=== PATIENT | male | born 1970 | race Two or more races ===

== ENCOUNTER 2021-09-18 07:37 | Emergency (ER) | payer OTHER ==
[~2021-09-18] VITALS: Ht 180.3 cm; Wt 90.7 kg
[2021-09-18 08:47] VITALS: BP 166/115
[2021-09-18] MEDS ORDERED: ACET-1158 PO (08:48)
[2021-09-18] MEDS ORDERED: CIPR1SUS8 OT ×2 (08:48→09:09)
== END 2021-09-18 09:07 | disposition home or self-care (01) ==
LOC: ER 07:37
DX: H60.93 Unspecified otitis externa, bilateral (principal); J01.90 Acute sinusitis, unspecified; B96.89 Other specified bacterial agents as the cause of diseases classified elsewhere; I10 Essential (primary) hypertension; Z79.899 Other long term (current) drug therapy

== ENCOUNTER 2023-04-18 07:14 | Emergency (ER) | payer OTHER, MEDICAID ==
[~2023-04-18] VITALS: Ht 180.3 cm; Wt 92.0 kg
[~2023-04-18 07:14] MED LIST: ACET500T58 PO; CIPR1SUS8 OT
[2023-04-18 07:44] VITALS: TEMP 97.9
[2023-04-18] MEDS ORDERED: PANTOPRAZOLE 40mg/50ML NS AE 50 ML IV ONE (08:00)
[2023-04-18] MEDS ORDERED: ONDANSETRON HCL 4 MG/2 ML VIAL IV ONE ×2 (08:00)
[2023-04-18] MEDS ORDERED: THIAMINE 100mg/ml INJ (200mg/2ml VIAL) IV ONE (08:00)
[2023-04-18] MEDS ORDERED: SODIUM CHLORIDE 0.9% 1,000 ML IV ONE ×3 (08:00)
[2023-04-18 08:18] LABS: Basophils # (auto) 0.1 10 ^3/uL (0-0.2); Basophils % (auto) 1.1 % (0.0-2.0); Eosinophils # (auto) 0.1 10 ^3/uL (0-0.8); Eosinophils % (auto) 1.1 % (0.0-7.0); Hematocrit 50.1 % (41.0-53.0); Hemoglobin 16.8 g/dL (13.5-17.5); Lymphocytes % (auto) 17.9 % (10.0-50.0); Mean Corpuscular Hgb Conc. 33.6 g/dL (32.0-36.0); Mean Corpuscular Volume 95.3 fL (80.0-100.0); Monocytes # (auto) 0.6 10 ^3/uL (0-1.3); Monocytes % (auto) 11.1 % (0.0-12.0); Neutrophils % (auto) 68.8 % (37.0-80.0); Nucleated Red Blood Cells % 0.1 %; Red Blood Cells 5.26 10^6/uL (4.5-5.90); Red Cell Distribution Width 13.1 % (11.8-14.3); White Blood Cell 5.8 10^3/uL (4.4-10.8)
[2023-04-18 08:36] LABS: Alanine Aminotransferase 185 U/L (7-40); Albumin 5.1 g/dL (3.2-4.8); Alkaline Phosphatase 67 U/L (46-116); Anion Gap 13 (5-15); Aspartate Aminotransferase 221 U/L (13-40); BUN/Creatinine Ratio 10.5 (10.0-20.0); Bilirubin, Total 2.2 mg/dL (0.2-1.0); Blood Urea Nitrogen 10 mg/dL (9-23); Calcium 9.9 mg/dL (8.5-10.1); Carbon Dioxide 22 mmol/L (20-30); Chloride 104 mmol/L (98-107); Glucose 126 mg/dL (74-106); Potassium 3.8 mmol/L (3.5-5.1); Sodium 139 mmol/L (136-145); Total Protein 7.4 g/dL (5.7-8.2)
[2023-04-18 08:44] VITALS: PULSE 99; RESP 18; O2SAT 97
[2023-04-18 09:32] LABS: Lipase 46 U/L (12-53)
[2023-04-18] MEDS ORDERED: AMOX500T3 PO (11:11)
[2023-04-18 11:46] LABS: Urine Bacteria FEW /hpf (None Seen); Urine Blood Negative /uL (Negative); Urine Clarity Clear (Clear); Urine Color Yellow (Yellow); Urine Hyaline Cast FEW /lpf (0 - 2); Urine Mucus FEW (None Seen); Urine Protein, UAD 1+ (Negative); Urine Specific Gravity 1.027 (1.001-1.035); Urine WBC 7 /hpf (0 - 3); Urine pH 6.5 (5.0-8.0)
[2023-04-18 14:57] VITALS: BP 159/90; PULSE 89; RESP 15; O2SAT 97
== END 2023-04-18 15:01 | disposition home or self-care (01) ==
LOC: ER 07:14
DX: F10.139 Alcohol abuse with withdrawal, unspecified (principal); I10 Essential (primary) hypertension; Y90.0 Blood alcohol level of less than 20 mg/100 ml
CPT/HCPCS: 36415; 74176; 80053; 81001; 83690; 85025; 96361; 96365; 96366; 96375; 99285; J2405; J3411; J7030

== ENCOUNTER 2024-05-04 13:46 | Inpatient (IN) | payer MEDICAID, OTHER ==
[~2024-05-04] VITALS: Ht 180.3 cm; Wt 90.9 kg
[~2024-05-04 13:46] MED LIST changes: +AMOX500T3 PO
--- NOTE | 2024-05-04 13:57 | ED.PDOC ---
History of Present Illness HPI Comments 53-year-old male presents with a chief complaint of chest pain, nausea, and vomiting s/p alcohol use. Patient states that his last drink was the day before yesterday and that around 2100 last night he began to have alcohol withdrawal symptoms. Patient mentions that he drinks roughly a pint of alcohol per day for the past 10 years. Patient is not actively vomiting at this time and was given 500mL NS en route by EMS. No other symptoms or modifying factors present at this time. Time Seen by MD: 13:50 Primary Care Provider: NONE Reviewed Notes: Medications, Allergies Allergies: Coded Allergies: NO KNOWN ALLERGIES (Unverified , 04/18/23) Home Meds Active Scripts Amoxicillin Trihydrate (Amoxicillin) 500 Mg Tab, 1 TAB PO TID for 7 Days, #21 TAB Prov:MAK FERRARI MD 04/18/23 Ciprofloxacin-Dexamethasone (Ciprofloxacin/Dexamethaso 0.3-0.1 %) 1 Karishma Karishma, 4 DROP OT BID for 7 Days, #2 BOTTLE 0 Refills Prov:YAEL BROWNE 09/18/21 Acetaminophen (Acetaminophen) 500 Mg Tab, 500 MG PO QIDP, #30 TAB 0 Refills Prov:YAEL BROWNE 09/18/21 Information Source: Patient, Emergency Med Personnel Mode of Arrival: EMS Severity: Moderate Timing: Hours Duration: Since onset Prehospital treatment: IVF (500mL NS) Past Medical History PAST MEDICAL HISTORY: HTN Surgical History: Denies all surgeries Family History Family History: Family hx of DM Social History Smoker: Non-Smoker Alcohol: Heavy Drugs: Denies Drug Use Lives In: Home Constitutional: denies: chills, diaphoresis, fatigue, fever, malaise, sweats, weakness, others EENTM: denies: blurred vision, double vision, ear bleeding, ear discharge, ear drainage, ear pain, ear ringing, eye pain, eye redness, hearing loss, mouth pain, mouth swelling, nasal discharge, nose bleeding, nose congestion, nose pain, photophobia, tearing, throat pain, throat swelling, voice changes, others Respiratory: denies: cough, hemoptysis, orthopnea, SOB at rest, shortness of breath, SOB with excertion, stridor, wheezing, others Cardiovascular: reports: chest pain; denies: dizzy spells, diaphoresis, Dyspnea on exertion, edema, irregular heart beat, left arm pain, lightheadedness, palpitations, PND, syncope, others Gastrointestinal: reports: nausea, vomiting; denies: abdomen distended, abdominal pain, blood streaked bowels, constipated, diarrhea, dysphagia, difficulty swallowing, hematemesis, melena, poor appetite, poor fluid intake, rectal bleeding, rectal pain, others Genitourinary: denies: burning, dysuria, flank pain, frequency, hematuria, incontinence, penile discharge, penile sore, pain, testicle pain, testicle swelling, urgency, others Neurological: denies: dizziness, fainting, headache, left sided numbness, left sided weakness, numbness, paresthesia, pre-existing deficit, right sided numbness, right sided weakness, seizure, speech problems, tingling, tremors, weakness, others Musculoskeletal: denies: back pain, gout, joint pain, joint swelling, muscle pain, muscle stiffness, neck pain, others Integumetry: denies: bruises, change in color, change in hair/nails, dryness, laceration, lesions, lumps, rash, wounds, others Allergic/Immunocompromised: denies: Difficulty Healing, Frequent Infections, Hives, Itching, others Hematologic/Lymphatic: denies: anemia, blood clots, easy bleeding, easy bruising, swollen glands, others Endocrine: denies: excessive hunger, excessive sweating, excessive thirst, excessive urination, flushing, intolerance to cold, intolerance to heat, unexplained weight gain, unexplained weight loss, others Psychiatric: denies: anxiety, bipolar disorder, depression, hopeless, panic di sorder, schizophrenia, sleepless, suicidal, others All Other Systems: Reviewed and Negative Physical Exam General Appearance: Moderate Distress, Normal HEENT: Normal ENT Inspection, Pharynx Normal, TMs Normal Neck: Full Range of Motion, Non-Tender, Normal, Normal Inspection Respiratory: Chest Non-Tender, Lungs Clear, No Accessory Muscle Use, No Respiratory Distress, Normal Breath Sounds Cardiovascular: No Edema, No JVD, No Murmur, No Gallop, Normal Peripheral Pulses, Tachycardia Breast Exam: Deferred Gastrointestinal: No Organomegaly, Non Tender, No Pulsatile Mass, Normal Bowel Sounds, Soft Genitalia: Deferred Pelvic: Deferred Rectal: Deferred Extremities: No calf tenderness, Normal capillary refill, Normal inspection, Normal range of motion, Non-tender, No pedal edema Musculoskeletal : Apperance: Normal Neurologic: Alert, insurance checker II-XII nml as Tested, No Motor Deficits, Normal Affect, Normal Mood, No Sensory Deficits Cerebellar Function: NOT DONE Reflexes: NOT DONE Skin: Dry, Normal Color, Warm Peripheral Pulses: 3+ Radial (R), 3+ Radial (L) Lymphatic: No Adenopathy Was a procedure done? Was a procedure done?: No Differential Dx Considerations may include: Alcohol withdrawal Electrolyte imbalance X-Ray, Labs, Meds, VS Vital Signs Date Time Temp Pulse Resp B/P (MAP) Pulse Ox O2 Delivery O2 Flow Rate FiO2 05/04/24 16:30 107 16 97 Room Air 05/04/24 16:30 97.2 107 16 136/90 (105) 97 97.2 05/04/24 14:09 105 05/04/24 14:00 98.2 106 24 150/94 (112) 94 Lab Test 05/04/24 18:50 Range/Units White Blood Count 7.3 4.4-10.8 10^3/uL Red Blood Count 4.97 4.5-5.90 10^6/uL Hemoglobin 15.8 13.5-17.5 g/dL Hematocrit 47.8 41.0-53.0 % Mean Corpuscular Volume 96.2 80.0-100.0 fL Mean Corpuscular Hemoglobin 31.9 28.0-32.0 pg Mean Corpuscular Hemoglobin Concent 33.1 32.0-36.0 g/dL Red Cell Distribution Width 13.4 11.8-14.3 % Platelet Count 157 140-450 10^3/uL Mean Platelet Volume 9.0 6.9-10.8 fL Neutrophils (%) (Auto) 78.9 37.0-80.0 % Lymphocytes (%) (Auto) 9.0 L 10.0-50.0 % Monocytes (%) (Auto) 11.4 0.0-12.0 % Eosinophils (%) (Auto) 0.1 0.0-7.0 % Basophils (%) (Auto) 0.6 0.0-2.0 % Neutrophils # (Auto) 5.8 1.6-8.6 10 ^3/uL Lymphocytes # (Auto) 0.7 0.4-5.4 10 ^3/uL Monocytes # (Auto) 0.8 0-1.3 10 ^3/uL Eosinophils # (Auto) 0 0-0.8 10 ^3/uL Basophils # (Auto) 0 0-0.2 10 ^3/uL Nucleated Red Blood Cells 0.1 % Sodium Level 135 L 136-145 mmol/L Potassium Level 4.8 3.5-5.1 mmol/L Chloride Level 95 L 98-107 mmol/L Carbon Dioxide Level 22 20-31 mmol/L Anion Gap 18 H 5-15 Blood Urea Nitrogen 26 H 9-23 mg/dL Creatinine 1.18 0.700-1.30 mg/dL Glomerular Filtration Rate Calc 73 >90 mL/min BUN/Creatinine Ratio 22.0 H 10.0-20.0 Serum Glucose 146 H 74-106 mg/dL Calcium Level 10.9 H 8.7-10.4 mg/dL Troponin I High Sensitivity 6 </=54 ng/L Plasma/Serum Blood Alcohol < 3.0 <10 mg/dL Current Medications Medications (Trade) Dose Ordered Sig/Mai Route Start Time Stop Time Status Last Admin Thiamine HCl 100 mg ONCE ONCE IV 05/04/24 14:00 05/04/24 14:01 DC 05/04/24 16:25 Sodium Chloride 1,000 ml @ 1,000 mls/hr Q1H ONCE IV 05/04/24 14:00 05/04/24 14:59 DC 05/04/24 16:17 Lorazepam (Ativan Inj) 1 mg ONCE ONCE IV 05/04/24 14:00 05/04/24 14:01 DC 05/04/24 16:24 Belladonna Alkaloids/ Phenobarbital ( Elixir) 10 ml ONCE ONCE PO 05/04/24 14:00 05/04/24 14:01 DC 05/04/24 16:23 Al Hydrox/Mg Hydrox/Simethicone (Maalox Plus) 30 ml ONCE ONCE PO 05/04/24 14:00 05/04/24 14:01 DC 05/04/24 16:23 Lidocaine HCl (Xylocaine 2% Viscous) 15 ml ONCE ONCE PO 05/04/24 14:00 05/04/24 14:01 DC 05/04/24 16:23 Aspirin 325 mg ONCE ONCE PO 05/04/24 14:00 05/04/24 14:01 DC 05/04/24 16:23 Patient alert. Tachycardic. Alcohol withdrawal. Vitals stable. Last drink was around midnight. History of high blood pressure. Establish intravenous access. Was given fluids. Was given thiamine. Was given Ativan. Counseled patient on effects of drinking for 15 minutes. Complaining of chest pain. Possibly gastritis. Explained to the patient. Continue cardiac monitoring. Time of 1ST Reevaluation: 14:20 Reevaluation 1ST: Unchanged Patient Education/Counseling: Diagnosis, Treatment, Prognosis Family Education/Counseling: Diagnosis, Treatment, Prognosis Departure 1 Departure Time of Disposition: 14:58 Impression: Primary Impression: Alcohol abuse Additional Impressions: Alcohol withdrawal Qualified Codes: F10.930 - Alcohol use, unspecified with withdrawal, uncomplicated Chest pain of unknown etiology Gastritis Qualified Codes: K29.00 - Acute gastritis without bleeding HTN (hypertension) Qualified Codes: I10 - Essential (primary) hypertension Disposition: ADMITTED INPATIENT Admit to: Med Surg Condition: Guarded Critical Care Note Critical Care Time?: No Stability Stability form required: No Heart Score Heart Score: Heart Score Response (Comments) Value History Slightly Suspicious 0 EKG Normal 0 Age 45-64 1 Risk Factors 1 or 2 risk factors 1 Troponin Normal limit 0 Total 2 I personally scribed for MAK FERRARI MD ([email or web address]) on 05/04/24 at 13:57. Electronically submitted by Jt Syed ([email or web address]). MAK FERRARI MD May 04, 2024 13:57
[2024-05-04] MEDS: SODIUM CHLORIDE 0.9% 1,000 ML IV ONE (16:17)
[2024-05-04] MEDS: MAALOX PLUS or MAALOX 30 ML PO ONE (16:23)
[2024-05-04] MEDS: ASPirin 325 MG TAB PO ONE (16:23)
[2024-05-04] MEDS: DONNATAL 5ml ORAL Elix (BELLADONNA ALK-PHENOBARB) PO ONE (16:23)
[2024-05-04] MEDS: LIDOCAINE VISCOUS 2% 15ML UD PO ONE (16:23)
[2024-05-04] MEDS: LORazepam 2MG/ML-1ML VIAL IV ONE (16:24)
[2024-05-04] MEDS: THIAMINE 100mg/ml INJ (200mg/2ml VIAL) IV ONE (16:25)
[2024-05-04 19:36] LABS: Basophils # (auto) 0 10 ^3/uL (0-0.2); Basophils % (auto) 0.6 % (0.0-2.0); Eosinophils # (auto) 0 10 ^3/uL (0-0.8); Eosinophils % (auto) 0.1 % (0.0-7.0); Hematocrit 47.8 % (41.0-53.0); Hemoglobin 15.8 g/dL (13.5-17.5); Lymphocytes # (auto) 0.7 10 ^3/uL (0.4-5.4); Mean Corpuscular Hemoglobin 31.9 pg (28.0-32.0); Mean Corpuscular Hgb Conc. 33.1 g/dL (32.0-36.0); Mean Corpuscular Volume 96.2 fL (80.0-100.0); Monocytes # (auto) 0.8 10 ^3/uL (0-1.3); Monocytes % (auto) 11.4 % (0.0-12.0); Neutrophils # (auto) 5.8 10 ^3/uL (1.6-8.6); Neutrophils % (auto) 78.9 % (37.0-80.0); Nucleated Red Blood Cells % 0.1 %; Platelet Count (auto) 157 10^3/uL (140-450); Red Blood Cells 4.97 10^6/uL (4.5-5.90); Red Cell Distribution Width 13.4 % (11.8-14.3); White Blood Cell 7.3 10^3/uL (4.4-10.8)
[2024-05-04 19:44] LABS: Potassium 4.8 mmol/L (3.5-5.1)
[2024-05-04 19:45] LABS: Anion Gap 18 (5-15); Carbon Dioxide 22 mmol/L (20-31)
[2024-05-04 19:56] LABS: Blood Alcohol < 3.0 mg/dL (<10); Blood Urea Nitrogen 26 mg/dL (9-23); Calcium 10.9 mg/dL (8.7-10.4); Chloride 95 mmol/L (98-107); Glucose 146 mg/dL (74-106); Sodium 135 mmol/L (136-145)
[2024-05-05] MEDS ORDERED: LOS25T PO (08:26)
[2024-05-05] MEDS ORDERED: PANT40T PO (08:26)
[2024-05-05] MEDS ORDERED: ONDANSETRON HCL 4 MG/2 ML VIAL IV PRN (08:30)
[2024-05-05] MEDS ORDERED: MORPHINE SULFATE INJ 2 MG/ml SYRG IV PRN (08:30)
[2024-05-05] MEDS ORDERED: LORazepam 2MG/ML-1ML VIAL IV PRN ×2 (08:30→08:45)
[2024-05-05] MEDS ORDERED: LORazepam 2MG/ML-1ML VIAL IV ONE (08:30)
[2024-05-05] MEDS ORDERED: ACETAMINOPHEN 325 MG TAB PO PRN (08:30)
[2024-05-05] MEDS ORDERED: HYDROcodone-ACET 5/325MG TAB PO PRN (08:30)
[2024-05-05] MEDS ORDERED: chlordiazePOXIDE HCL 25 MG CAP PO SCH ×2 (08:30→08:45)
[2024-05-05] MEDS ORDERED: NITROGLYCERIN 0.4 MG SL TAB SL PRN (08:30)
[2024-05-05] MEDS ORDERED: DOCUSATE SOD 100 MG CAP PO PRN (08:30)
[2024-05-05] MEDS ORDERED: LORazepam 2MG/ML-1ML VIAL IV SCH ×3 (08:30→14:30)
[2024-05-05 08:55] LABS: Basophils # (auto) 0 10 ^3/uL (0-0.2); Basophils % (auto) 0.3 % (0.0-2.0); Eosinophils # (auto) 0.1 10 ^3/uL (0-0.8); Eosinophils % (auto) 0.9 % (0.0-7.0); Hematocrit 47.1 % (41.0-53.0); Hemoglobin 15.8 g/dL (13.5-17.5); Lymphocytes # (auto) 0.8 10 ^3/uL (0.4-5.4); Mean Corpuscular Hemoglobin 32.1 pg (28.0-32.0); Mean Corpuscular Hgb Conc. 33.6 g/dL (32.0-36.0); Mean Corpuscular Volume 95.5 fL (80.0-100.0); Monocytes # (auto) 0.8 10 ^3/uL (0-1.3); Neutrophils # (auto) 6.6 10 ^3/uL (1.6-8.6); Neutrophils % (auto) 78.8 % (37.0-80.0); Nucleated Red Blood Cells % 0.1 %; Platelet Count (auto) 132 10^3/uL (140-450); Red Blood Cells 4.94 10^6/uL (4.5-5.90); Red Cell Distribution Width 13.2 % (11.8-14.3); White Blood Cell 8.4 10^3/uL (4.4-10.8)
[2024-05-05 09:01] LABS: Potassium 3.9 mmol/L (3.5-5.1)
[2024-05-05 09:05] LABS: Carbon Dioxide 26 mmol/L (20-31)
[2024-05-05 09:10] LABS: Alkaline Phosphatase 72 U/L (46-116); BUN/Creatinine Ratio 25.2 (10.0-20.0)
[2024-05-05 09:11] LABS: Magnesium 2.2 mg/dL (1.6-2.6)
[2024-05-05 09:12] LABS: Total Protein 7.4 g/dL (5.7-8.2)
[2024-05-05 09:16] LABS: Alanine Aminotransferase 61 U/L (7-40); Albumin 5.4 g/dL (3.2-4.8); Aspartate Aminotransferase 66 U/L (13-40); Bilirubin, Total 2.6 mg/dL (0.2-1.0); Blood Urea Nitrogen 27 mg/dL (9-23); Glucose 133 mg/dL (74-106)
[2024-05-05 09:18] LABS: Anion Gap 12 (5-15); Chloride 96 mmol/L (98-107); Sodium 134 mmol/L (136-145)
--- NOTE | 2024-05-05 09:34 | DVHHP2 ---
History of Present Illness Reason for Visit: Alcohol withdrawal History of Present Illness Abhishek Alba is a 53-year-old male with past medical history of GERD, hypertension, and ETOH dependance, who came in for ETOH withdrawals. Patient states his last drink was 05/03/2024 around 1300. He drinks about 1 pint of liquor a day. He states yesterday morning he was in his kitchen when he became nauseated, and weak, he made his way to the sink and ended up collapsing onto the floor. He states his stomach feels like it is having spasms, he is nauseated, and has tremors. He states he has made the decision that he wants to stop drinking. Cardiovascular: HTN GI: GERD Past Surgical History: None Smoke: No ALCOHOL: heavy Drugs: None Lives: with Family Domestic Violence: Neg Review of Systems Constitutional: Yes: Weakness; No: Fever, Chills, Sweats, Malaise, Other Eyes: No: Pain, Vision change, Conjunctivae inflammation, Eyelid inflammation, Other, Redness ENT: No: Ear pain, Ear discharge, Nose pain, Nose discharge, Nose congestion, Mouth pain, Mouth swelling, Throat pain, Throat swelling, Other Respiratory: No: Cough, Dry, Shortness of breath, SOB with excertion, Wheezing, Hemoptysis, Pleuritic Pain, Sputum, Wheezing, Other Cardiovascular: No: Chest Pain, Palpitations, Orthopnea, Paroxysmal Noc. Dyspnea, Edema, Lt Headedness, Other Gastrointestinal: Nausea, Abdominal Pain; No: Vomiting, Diarrhea, Constipation, Melena, Hematochezia, Other Genitourinary: No Dysuria, No Frequency, No Incontinence, No Hematuria, No Retention, No Other Musculoskeletal: No: other, neck pain, shoulder pain, arm pain, back pain, hand pain, leg pain, foot pain Skin: No: Rash, Lesions, Jaundice, Bruising, Other Neurological: No: Weakness, Numbness, Incoordination, Change in speech, Confusion, Seizures, Other Allergies: Coded Allergies: NO KNOWN ALLERGIES (Unverified , 04/18/23) Medications Current Medications Medications Dose Ordered Sig/Mai Route Start Time Stop Time Status Last Admin Dose Admin Acetaminophen/ Hydrocodone Bitart 1 tab Q4HP PRN PO 05/05/24 08:30 UNV Ondansetron HCl 4 mg Q4HP PRN IV 05/05/24 08:30 UNV Docusate Sodium 100 mg BIDPRN PRN PO 05/05/24 08:30 UNV Acetaminophen 650 mg Q6HP PRN PO 05/05/24 08:30 UNV Nitroglycerin 0.4 mg Q5MINP PRN SL 05/05/24 08:30 UNV Morphine Sulfate 2 mg Q30M PRN IV 05/05/24 08:30 UNV Chlordiazepoxide HCl 50 mg Q8H PO 05/05/24 08:30 05/06/24 00:31 UNV Chlordiazepoxide HCl 50 mg Q12HR PO 05/06/24 10:00 05/06/24 22:01 UNV Chlordiazepoxide HCl 25 mg Q12HR PO 05/07/24 10:00 05/07/24 22:01 UNV Chlordiazepoxide HCl 25 mg QAM PO 05/08/24 07:00 05/08/24 07:01 UNV Exam Vital Signs Vital Signs Date Time Temp Pulse Resp B/P (MAP) Pulse Ox O2 Delivery O2 Flow Rate FiO2 05/04/24 16:30 107 16 97 Room Air 05/04/24 16:30 97.2 136/90 (105) 97.2 General Appearance: Alert, Oriented X3, Cooperative, mild distress HEENT: Atraumatic, PERRLA Respiratory: Clear to auscultation, Normal air movement Cardiovascular: Normal S1, Normal S2, Other (tachycardia) Abdominal: Normal bowel sounds, Soft Extremities: No clubbing, No cyanosis, No edema, Normal pulses, Other (tremors noted) Skin: No rashes, No breakdown, No significant lesion Neuro: Normal gait, Normal speech, Strength at 5/5 X4 ext Psych/Mental Status: Mental status NL, Mood NL Labs/Xrays Labs Test 05/05/24 08:15 05/04/24 18:50 Range/Units Eosinophils (%) (Auto) 0.1 0.0-7.0 % Eosinophils # (Auto) 0 0-0.8 10 ^3/uL Basophils # (Auto) 0 0-0.2 10 ^3/uL Nucleated Red Blood Cells 0.1 % Troponin I High Sensitivity 6 </=54 ng/L Plasma/Serum Blood Alcohol < 3.0 <10 mg/dL Assessment/Plan Assessment/Plan Assessment: Alcohol withdrawal, Hypertension, GERD, Plan: Admit to Tele, Librium tapering dose, CIWA protocol, IV hydration, Social service consult, PO supplements, Chest X-ray, Home medications reconciled, Plan discussed with: Patient My Orders Orders - LISETH LI SUSPENDER MAKER Procedure Category Date Status Time Comprehensive LAB 05/05/24 In Process Metabolic Panel 07:41 Complete Blood Count LAB 05/05/24 In Process 07:41 Admit ADMIT 05/05/24 Transmitted 08:24 Code Status CODE 05/05/24 Transmitted 08:24 2 Gm Sodium Diet DIET 05/05/24 Transmitted Breakfast Hydrocodone-Acet PHA 05/05/24 Logged 5/325mg Tab ([place] 08:30 Ondansetron Hcl PHA 05/05/24 Logged (Zofran) 08:30 Docusate Sodium PHA 05/05/24 Logged Capsule (Colace 08:30 Complete Blood Count LAB 05/06/24 Verified 04:00 Comprehensive LAB 05/06/24 Verified Metabolic Panel 04:00 Condition: Critical MELVA 05/05/24 In Process 08:24 Acetaminophen Tablet PHA 05/05/24 Logged (Tylenol Tablet) 08:30 Nitroglycerin PHA 05/05/24 Logged Sublingual (Ntrostat 08:30 Morphine Sulfate PHA 05/05/24 Logged Injection 08:30 Stat Ekg For Chest MELVA 05/05/24 In Process Pain 08:24 Notify Of Changes MELVA 05/05/24 In Process From Base 08:24 Bank Officer For MELVA 05/05/24 In Process 24 Hours 08:24 Emergency Dysrhythmia MELVA 05/05/24 In Process Protocol 08:24 Rhythm Strips Once MELVA 05/05/24 In Process Every Shift 08:24 Oxygen By Nasal RT 05/05/24 Transmitted Cannula 08:24 Chlordiazepoxide Hcl PHA 05/05/24 Logged Capsule (Librium Ca 08:30 Chlordiazepoxide Hcl PHA 05/06/24 Logged Capsule (Librium Ca 10:00 Chlordiazepoxide Hcl PHA 05/07/24 Logged Capsule (Librium Ca 10:00 Chlordiazepoxide Hcl PHA 05/08/24 Logged Capsule (Librium Ca 07:00 Drug Screen LAB 05/05/24 Transmitted 08:25 0.9% Nacl 1 Liter PHA 05/05/24 Transmitted Bolus 08:30 Magnesium LAB 05/05/24 Transmitted 08:25 Thiamine 100mg Po PHA 05/05/24 Transmitted Daily 10:00 Folic Acid 1mg Po PHA 05/05/24 Transmitted Daily 10:00 Mvi Tablet Po Daily PHA 05/05/24 Transmitted 10:00 Ativan 1mg Iv Stat PHA 05/05/24 Transmitted 08:30 Ativan 1mg Iv Q6hr Atc PHA 05/05/24 Transmitted 08:30 Ativan 1mg Iv Q2hr Prn PHA 05/05/24 Transmitted 08:30 Etoh Withdrawal MELVA 05/05/24 Transmitted Assessment 08:25 Etoh Withdrawal MELVA 05/05/24 Transmitted Assessment 08:25 Losartan Tablet PHA 05/05/24 Transmitted (Cozaar Tablet) 10:00 Pantoprazole Tablet PHA 05/05/24 Transmitted (Protonix Tablet) 10:00 Date of Service: May 05, 2024 Billing Provider: LISETH LI Common Visit Codes: [id number] INP/OBS CARE (MOD) LISETH LI May 05, 2024 09:34
--- NOTE | 2024-05-05 09:55 | ECG ---
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
[2024-05-05] MEDS ORDERED: FOLIC ACID 1 MG TAB PO SCH (10:00)
[2024-05-05] MEDS ORDERED: PANTOPRAZOLE 40 MG TAB PO SCH (10:00)
[2024-05-05] MEDS ORDERED: THIAMINE HCL 100 MG TAB PO SCH (10:00)
[2024-05-05] MEDS ORDERED: LOSARTAN POTASSIUM 25 MG TAB PO SCH (10:00)
[2024-05-05] MEDS ORDERED: MULTIPLE VITAMIN TAB PO SCH (10:00)
[2024-05-05 10:02] VITALS: TEMP 97.7
--- NOTE | 2024-05-05 10:04 | DVH ---
CHEST RADIOGRAPH Indication: SOB Technique: Single frontal view of the chest was obtained Comparison: None FINDINGS: Lines and Tubes: None Lungs: No focal consolidation. Pleura: No effusion. No pneumothorax. Cardiomediastinal contours: Unremarkable Bones: No acute osseous abnormality. IMPRESSION: No acute cardiopulmonary disease.
[2024-05-05] MEDS: SODIUM CHLORIDE 0.9% 1,000 ML IVB ONE (10:10)
[2024-05-05] MEDS: LORazepam 2MG/ML-1ML VIAL IV ONE (10:11)
[2024-05-05] MEDS: chlordiazePOXIDE HCL 25 MG CAP PO SCH (10:15)
[2024-05-05 12:52] VITALS: BP 144/93; PULSE 110; RESP 16; O2SAT 98
--- NOTE | 2024-05-05 12:55 | ECG ---
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
[2024-05-06] MEDS ORDERED: chlordiazePOXIDE HCL 25 MG CAP PO SCH (10:00)
[2024-05-07] MEDS ORDERED: chlordiazePOXIDE HCL 25 MG CAP PO SCH ×2 (10:00)
[2024-05-08] MEDS ORDERED: chlordiazePOXIDE HCL 25 MG CAP PO SCH ×2 (07:00)
== END 2024-05-05 16:20 | disposition left against medical advice (07) | DRG 770 ==
LOC: ER 13:46 → EDBD 13:46 → OVERFLOW 05-05 08:24 → ER 05-05 08:25
PROVIDERS: ADMIT Nurse Practitioner Family; ATTEND Nurse Practitioner Family
DX: F10.139 Alcohol abuse with withdrawal, unspecified (principal); I10 Essential (primary) hypertension; K29.70 Gastritis, unspecified, without bleeding; K21.9 Gastro-esophageal reflux disease without esophagitis; Y90.0 Blood alcohol level of less than 20 mg/100 ml; Z53.29 Procedure and treatment not carried out because of patient's decision for other reasons; Z79.2 Long term (current) use of antibiotics; Z79.899 Other long term (current) drug therapy; Z83.3 Family history of diabetes mellitus
CPT/HCPCS: 36415; 71045; 80048; 80053; 80320; 83735; 84484; 85025; 93005; G0378